=== PATIENT | male | born 1990 | race Caucasian/White ===

== ENCOUNTER 2025-01-08 18:42 | Emergency (ER) | payer MEDICAID, SELFPAY ==
--- NOTE | ~2025-01-08 | US_ITS ---
TESTICULAR ULTRASOUND (Doppler ultrasound interrogation techniques used as needed for this exam.) Ordering provider: Javed Garcia History: . pain and swelling . Comparison: None. FINDINGS: TESTICLES: Normal in size. The right measures 4.6x 2.7x 2.8 cm and the left measures 4.9x 2.1x 2.8 cm . Normal echogenicity bilaterally without mass lesion. Normal Doppler flow bilaterally. EPIDIDYMIDES: Normal in size. . Normal echogenicity bilaterally. Both demonstrate normal Doppler flow . HYDROCELE: None. VARICOCELE: Left is noted measuring 4 mm. OTHER ABNORMALITY: None seen. IMPRESSION: Left varicocele. Otherwise, normal testicular ultrasound. Reviewed, dictated and finalized at location A.
[2025-01-08 18:44] VITALS: BP 135/71; PULSE 81; RESP 16; TEMP 36.4; O2SAT 98
--- NOTE | 2025-01-08 20:02 | ED.MALEGU ---
HPI - Male Genitourinary General Chief complaint: Urogenital-Male Stated complaint: testicular pain Time Seen by Provider: 01/08/25 19:04 History of Present Illness HPI Narrative: 34-year-old otherwise healthy male presenting to the emergency room with left testicular swelling and occasional pain. Intermittent in nature for the last month. He has an ultrasound appointment in January but was having worsening frequency so he came to the ER. Denies any urinary complaints such as dysuria, hematuria or difficulty initiating a urinary stream. No prostate issues to his knowledge. Has a history of an umbilical hernia but no inguinal hernias to his knowledge. States that he occasionally gets testicular swelling that feels like it is separate from the testicle itself and more related to scrotal swelling from a potential mass. Swelling goes away as nontender. Discoloration or penile pain. No penile drainage. No concerns for STDs according to the patient. Related Data Allergies Allergy/AdvReac Type Severity Reaction Status Date / Time No Known Allergies Allergy Verified 01/08/25 18:46 Review of Systems Review of Systems: As reviewed above in HPI Exam Narrative: GENERAL: [Well-appearing, well-nourished, and in no acute distress.] HEAD: [Normocephalic, atraumatic.] EYES: [PERRLA and EOMI.] ENT: Nares clear, no rhinorrhea or epistaxis. Mucous membranes moist. NECK: Supple. CHEST: [Clear to auscultation. No respiratory distress.] HEART: [Regular rate and rhythm]. No murmur heard. [Normal peripheral pulses.] ABDOMEN: [Soft, nondistended], [nontender], [No rigidity or guarding] : Left testicle is slightly more distended than the right testicle, no testicular swelling. Scrotum does appear slightly more full compared to the right side. Cremasteric reflex intact bilaterally. EXTREMITIES: Normal range of motion. [No edema.] SKIN: Warm, dry, no rash. NEURO: [No focal deficits]. Alert and oriented [x3.] PSYCH: [Normal mood and affect.] Course Vital Signs Vital signs: Vital Signs Temperature 36.4 C L 01/08/25 18:44 Pulse Rate 81 01/08/25 18:44 Respiratory Rate 16 01/08/25 18:44 Blood Pressure 135/71 01/08/25 18:44 Pulse Oximetry 98 01/08/25 18:44 Temperature 36.4 C L 01/08/25 18:44 Pulse Rate 81 01/08/25 18:44 Respiratory Rate 16 01/08/25 18:44 Blood Pressure 135/71 01/08/25 18:44 Pulse Oximetry 98 01/08/25 18:44 MDM - Male Genitourinary MDM Narrative Medical decision making narrative: 74-year-old otherwise healthy male presenting with intermittent left testicular swelling and pain. He is not remarkable physical examination aside from some minor fullness in his left testing around the epididymis. No urinary complaints. No STD concerns. No rash. Normal vital signs. Suspicion presently for potential varicocele, hydrocele, low suspicion testicular torsion. A testicular ultrasound was ordered as well as a urinalysis. Patient was otherwise in his normal state of health not any pain at this time. Ultrasound shows left varicocele otherwise normal testicular ultrasound with good flow. Urinalysis negative. Patient will be discharged home with Urology follow-up. Medical Records Attestation: I reviewed the patient's medical records. Lab Data Attestation: I reviewed the patient's lab results. Imaging Data Attestation: I personally reviewed and interpreted this imaging study as follows: My impression: Impressions Scrotum Ultrasound 01/08/25 19:32 IMPRESSION: Left varicocele. Otherwise, normal testicular ultrasound. Discharge Plan Discharge Clinical Impression: Varicocele Patient Disposition: Home Condition: Stable Instructions: Antibiotic Form Additional Instructions: Your scrotal ultrasound shows a left varicocele which is enlargement of the vasculature and causing your swelling, but there is no concerning findings such as torsion or any infection. We will have you follow-up with Urology on outpatient basis to address this. No urgent or emergent concern. Take Tylenol and ibuprofen for any pain or swelling. Patient Language: Mohawk Follow-up/Referrals: Aj,MD Lela [Primary Care Provider] - Antwan Sanchez MD [Physician] - 1 Week (Varicocele) Time of Disposition: 21:25
[2025-01-08 20:17] LABS: Add Urine Microscopic? NO; Appearance Urine Clear (Clear); Bilirubin Urine Negative (Negative); Blood Urine Negative (Negative); Color Urine Yellow (Yellow); Glucose Urine UA Negative (Negative); Ketones Urine Negative (Negative); Leukocyte Esterase Ur Negative LEU/UL (Negative); Nitrate Urine Negative (Negative); Protein Urine Negative (Negative); Specific Grav Ur 1.022 (1.001-1.035); Urobilinogen Urine 0.2 mg/dL (<2.0); pH Urine 5.5 (5.0-9.0)
== END 2025-01-08 21:35 | disposition home or self-care (01) ==
PROVIDERS: Emergency Provider Student in an Organized Health Care Education/Training Program; PCP Pediatrics
DX: I86.1 Scrotal varices (principal)
CPT/HCPCS: 76870; 81003; 93976; 99284